=== PATIENT | female | born 1935 | race Caucasian/White ===

== ENCOUNTER 2021-03-10 16:36 | Inpatient (IN) ==
[2021-03-16] MEDS ORDERED: Bisacodyl 10 MG RECTAL SUPPOSITORY RC PRN (07:55)
[2021-03-16] MEDS ORDERED: (Diclofenac Sodium [Voltaren] 100 GM Gel) TP PRN (08:01)
[2021-03-16 09:04] LABS: Basophils # 0.1 K/mcL (0.0-0.2); Basophils % 0.6 %; Eosinophils # 0.7 K/mcL (0.0-0.6); Eosinophils % 8.2 %; Hematocrit 32.1 % (35.3-44.9); Hemoglobin 10.6 g/dL (11.5-15.4); Immature Granulocytes % 0.7 % (0-4); Lymphocytes # 1.9 K/mcL (0.6-4.6); Lymphocytes % 21.6 %; Mean Corpuscular Hemoglobin 29.7 pg (28.0-33.3); Mean Corpuscular Volume 89.9 fL (83.0-100.0); Mean Platelet Volume 10.4 fL (9.4-12.4); Monocytes # 1.4 K/mcL (0.0-1.3); Neutrophils # 4.7 K/mcL (1.6-8.9); Platelet Count 563 K/mcL (140-400); Red Blood Count 3.57 M/mcL (3.82-4.97); Red Cell Distribution Width 14.6 % (11.5-14.5); Segmented Neutrophils % 52.9 %; White Blood Count 8.9 K/mcL (4.3-11.1)
[2021-03-16] MEDS: *HR* OxyCODONE Immed Rel 5 MG TABLET PO PRN ×3 (09:04→20:52)
[2021-03-16] MEDS: Multivit/Ca/Min/Fe/FA 1 TAB TABLET PO SCH (09:05)
[2021-03-16] MEDS: Metoprolol XL (24 HR) Succ 50 MG TAB.ER.24H PO SCH ×2 (09:05→20:52)
[2021-03-16] MEDS: Furosemide 20 MG TABLET PO SCH (09:05)
[2021-03-16] MEDS: Isosorbide MONOnitrate (24 HR) 30 MG TAB.ER.24H PO SCH (09:05)
[2021-03-16] MEDS: Sennosides/Docusate Sodium TABLET PO SCH ×2 (09:05→20:52)
[2021-03-16 09:07] LABS: Activated Partial Thrombo Time 31.8 Seconds (26.0-36.0)
[2021-03-16] MEDS: TRIMETHOPRIM 100 MG PO SCH (09:09)
[2021-03-16] MEDS: *HR* SitaGLIPtin 25 MG TABLET PO SCH ×2 (09:09→16:27)
[2021-03-16] MEDS: (Cranberry Conc/C/Bacill Coag [Cranberry Tablet]) PO SCH (09:09)
[2021-03-16] MEDS: *HR* Metformin 500 MG TABLET PO SCH ×2 (09:09→16:27)
[2021-03-16 09:15] LABS: INR 1.5; Prothrombin Time 17.4 Seconds (9.4-12.1)
[2021-03-16 09:19] LABS: eGFR For African Americans > 60 (> 60); eGFR For Non-African Americans > 60 (> 60)
[2021-03-16] MEDS: *HR* Rivaroxaban 10 MG TABLET PO SCH (16:27)
[2021-03-16] MEDS ORDERED: QUEtiapine Fumarate 25 MG TABLET PO SCH (21:00)
[2021-03-17] MEDS: Sennosides/Docusate Sodium TABLET PO SCH ×2 (08:06→19:57)
[2021-03-17] MEDS: *HR* OxyCODONE Immed Rel 5 MG TABLET PO PRN ×2 (08:06→17:08)
[2021-03-17] MEDS: Metoprolol XL (24 HR) Succ 50 MG TAB.ER.24H PO SCH ×2 (08:07→19:57)
[2021-03-17] MEDS: Multivit/Ca/Min/Fe/FA 1 TAB TABLET PO SCH (08:07)
[2021-03-17] MEDS: Furosemide 20 MG TABLET PO SCH (08:07)
[2021-03-17] MEDS: *HR* Metformin 500 MG TABLET PO SCH ×2 (08:07→17:09)
[2021-03-17] MEDS: *HR* SitaGLIPtin 25 MG TABLET PO SCH ×2 (08:07→17:08)
[2021-03-17] MEDS: Isosorbide MONOnitrate (24 HR) 30 MG TAB.ER.24H PO SCH (08:08)
[2021-03-17] MEDS: (Cranberry Conc/C/Bacill Coag [Cranberry Tablet]) PO SCH (08:09)
[2021-03-17] MEDS: TRIMETHOPRIM 100 MG PO SCH (08:09)
[2021-03-17] MEDS: Acetaminophen 325 MG TABLET PO PRN (13:10)
[2021-03-17] MEDS: *HR* Rivaroxaban 10 MG TABLET PO SCH (17:08)
[2021-03-18] MEDS: *HR* OxyCODONE Immed Rel 5 MG TABLET PO PRN ×3 (05:30→20:45)
[2021-03-18 07:24] LABS: Basophils # 0.1 K/mcL (0.0-0.2); Basophils % 0.6 %; Eosinophils # 0.5 K/mcL (0.0-0.6); Eosinophils % 6.1 %; Hematocrit 34.6 % (35.3-44.9); Hemoglobin 11.1 g/dL (11.5-15.4); Immature Granulocytes % 0.7 % (0-4); Lymphocytes # 1.9 K/mcL (0.6-4.6); Lymphocytes % 21.6 %; Mean Corpuscular HGB Conc 32.1 g/dL (31.6-35.5); Mean Corpuscular Hemoglobin 29.2 pg (28.0-33.3); Mean Corpuscular Volume 91.1 fL (83.0-100.0); Mean Platelet Volume 9.8 fL (9.4-12.4); Monocytes # 1.2 K/mcL (0.0-1.3); Monocytes % 13.7 %; Platelet Count 570 K/mcL (140-400); Red Cell Distribution Width 14.6 % (11.5-14.5); Segmented Neutrophils % 57.3 %; White Blood Count 8.6 K/mcL (4.3-11.1)
[2021-03-18 07:45] LABS: BUN/Creatinine Ratio 22 (6-26); Blood Urea Nitrogen 20 mg/dL (8-23); Calcium 8.8 mg/dL (8.6-10.3); Carbon Dioxide 26 mEq/L (23-29); Chloride 103 mEq/L (98-107); Glucose 104 mg/dL (70-105); Osmolality,Calculated 289 (280-300); Potassium 4.1 mEq/L (3.5-5.1); Sodium 138 mEq/L (136-145); eGFR For African Americans > 60 (> 60); eGFR For Non-African Americans 58 (> 60)
[2021-03-18] MEDS: Multivit/Ca/Min/Fe/FA 1 TAB TABLET PO SCH (09:01)
[2021-03-18] MEDS: Metoprolol XL (24 HR) Succ 50 MG TAB.ER.24H PO SCH ×2 (09:01→20:44)
[2021-03-18] MEDS: Sennosides/Docusate Sodium TABLET PO SCH ×2 (09:01→20:44)
[2021-03-18] MEDS: Isosorbide MONOnitrate (24 HR) 30 MG TAB.ER.24H PO SCH (09:02)
[2021-03-18] MEDS: *HR* Metformin 500 MG TABLET PO SCH ×2 (09:02→17:22)
[2021-03-18] MEDS: *HR* SitaGLIPtin 25 MG TABLET PO SCH ×2 (09:02→17:22)
[2021-03-18] MEDS: Furosemide 20 MG TABLET PO SCH (09:02)
[2021-03-18] MEDS: (Cranberry Conc/C/Bacill Coag [Cranberry Tablet]) PO SCH (09:02)
[2021-03-18] MEDS: TRIMETHOPRIM 100 MG PO SCH (09:02)
[2021-03-18] MEDS: *HR* Rivaroxaban 10 MG TABLET PO SCH (17:22)
[2021-03-19] MEDS: Ondansetron ODT 4 MG TAB.RAPDIS SL PRN (06:47)
[2021-03-19] MEDS: *HR* Metformin 500 MG TABLET PO SCH ×2 (08:21→17:11)
[2021-03-19] MEDS: Multivit/Ca/Min/Fe/FA 1 TAB TABLET PO SCH (08:22)
[2021-03-19] MEDS: Metoprolol XL (24 HR) Succ 50 MG TAB.ER.24H PO SCH ×2 (08:22→19:51)
[2021-03-19] MEDS: Furosemide 20 MG TABLET PO SCH (08:22)
[2021-03-19] MEDS: Isosorbide MONOnitrate (24 HR) 30 MG TAB.ER.24H PO SCH (08:22)
[2021-03-19] MEDS: *HR* OxyCODONE Immed Rel 5 MG TABLET PO PRN ×3 (08:22→22:24)
[2021-03-19] MEDS: Sennosides/Docusate Sodium TABLET PO SCH ×2 (08:22→19:51)
[2021-03-19] MEDS: *HR* SitaGLIPtin 25 MG TABLET PO SCH ×2 (08:22→17:12)
[2021-03-19] MEDS: (Cranberry Conc/C/Bacill Coag [Cranberry Tablet]) PO SCH (08:28)
[2021-03-19] MEDS: TRIMETHOPRIM 100 MG PO SCH (08:28)
[2021-03-19] MEDS: *HR* Rivaroxaban 10 MG TABLET PO SCH (17:12)
[2021-03-19] MEDS: Acetaminophen 325 MG TABLET PO PRN (19:51)
[2021-03-20] MEDS: (Cranberry Conc/C/Bacill Coag [Cranberry Tablet]) PO SCH (09:07)
[2021-03-20] MEDS: TRIMETHOPRIM 100 MG PO SCH (09:07)
[2021-03-20] MEDS: *HR* SitaGLIPtin 25 MG TABLET PO SCH ×2 (09:09→16:12)
[2021-03-20] MEDS: Isosorbide MONOnitrate (24 HR) 30 MG TAB.ER.24H PO SCH (09:10)
[2021-03-20] MEDS: Sennosides/Docusate Sodium TABLET PO SCH ×2 (09:10→21:20)
[2021-03-20] MEDS: Multivit/Ca/Min/Fe/FA 1 TAB TABLET PO SCH (09:10)
[2021-03-20] MEDS: Furosemide 20 MG TABLET PO SCH (09:10)
[2021-03-20] MEDS: *HR* Metformin 500 MG TABLET PO SCH ×2 (09:10→16:12)
[2021-03-20] MEDS: Metoprolol XL (24 HR) Succ 50 MG TAB.ER.24H PO SCH ×2 (09:10→21:20)
[2021-03-20] MEDS: Ondansetron ODT 4 MG TAB.RAPDIS SL PRN (12:59)
[2021-03-20] MEDS: *HR* Rivaroxaban 10 MG TABLET PO SCH (16:12)
[2021-03-20] MEDS: *HR* OxyCODONE Immed Rel 5 MG TABLET PO PRN (16:18)
[2021-03-21] MEDS: Metoprolol XL (24 HR) Succ 50 MG TAB.ER.24H PO SCH ×2 (09:03→22:06)
[2021-03-21] MEDS: *HR* SitaGLIPtin 25 MG TABLET PO SCH ×2 (09:03→17:26)
[2021-03-21] MEDS: Isosorbide MONOnitrate (24 HR) 30 MG TAB.ER.24H PO SCH (09:03)
[2021-03-21] MEDS: Sennosides/Docusate Sodium TABLET PO SCH ×2 (09:03→22:06)
[2021-03-21] MEDS: Furosemide 20 MG TABLET PO SCH (09:04)
[2021-03-21] MEDS: (Cranberry Conc/C/Bacill Coag [Cranberry Tablet]) PO SCH (09:04)
[2021-03-21] MEDS: *HR* Metformin 500 MG TABLET PO SCH ×2 (09:04→17:26)
[2021-03-21] MEDS: TRIMETHOPRIM 100 MG PO SCH (09:04)
[2021-03-21] MEDS: Multivit/Ca/Min/Fe/FA 1 TAB TABLET PO SCH (09:04)
[2021-03-21] MEDS: *HR* Rivaroxaban 10 MG TABLET PO SCH (17:26)
[2021-03-22 08:45] LABS: Basophils # 0.1 K/mcL (0.0-0.2); Basophils % 0.6 %; Eosinophils # 0.4 K/mcL (0.0-0.6); Eosinophils % 3.9 %; Hematocrit 35.9 % (35.3-44.9); Hemoglobin 11.6 g/dL (11.5-15.4); Immature Granulocytes % 0.3 % (0-4); Lymphocytes % 22.7 %; Mean Corpuscular HGB Conc 32.3 g/dL (31.6-35.5); Mean Corpuscular Hemoglobin 29.2 pg (28.0-33.3); Mean Corpuscular Volume 90.4 fL (83.0-100.0); Monocytes % 10.9 %; Neutrophils # 5.5 K/mcL (1.6-8.9); Platelet Count 594 K/mcL (140-400); Red Blood Count 3.97 M/mcL (3.82-4.97); Red Cell Distribution Width 14.5 % (11.5-14.5); Segmented Neutrophils % 61.6 %
[2021-03-22 09:06] LABS: BUN/Creatinine Ratio 23 (6-26); Blood Urea Nitrogen 21 mg/dL (8-23); Carbon Dioxide 27 mEq/L (23-29); Chloride 100 mEq/L (98-107); Glucose 131 mg/dL (70-105); Osmolality,Calculated 289 (280-300); Potassium 3.8 mEq/L (3.5-5.1); Sodium 137 mEq/L (136-145); eGFR For African Americans > 60 (> 60); eGFR For Non-African Americans 58 (> 60)
[2021-03-22] MEDS: Isosorbide MONOnitrate (24 HR) 30 MG TAB.ER.24H PO SCH (10:04)
[2021-03-22] MEDS: *HR* Metformin 500 MG TABLET PO SCH ×2 (10:04→17:21)
[2021-03-22] MEDS: Furosemide 20 MG TABLET PO SCH (10:04)
[2021-03-22] MEDS: *HR* SitaGLIPtin 25 MG TABLET PO SCH ×2 (10:04→17:21)
[2021-03-22] MEDS: Sennosides/Docusate Sodium TABLET PO SCH ×2 (10:04→19:49)
[2021-03-22] MEDS: Multivit/Ca/Min/Fe/FA 1 TAB TABLET PO SCH (10:04)
[2021-03-22] MEDS: Metoprolol XL (24 HR) Succ 50 MG TAB.ER.24H PO SCH ×2 (10:05→19:49)
[2021-03-22] MEDS: (Cranberry Conc/C/Bacill Coag [Cranberry Tablet]) PO SCH (10:05)
[2021-03-22] MEDS: TRIMETHOPRIM 100 MG PO SCH (10:05)
[2021-03-22] MEDS: *HR* Rivaroxaban 10 MG TABLET PO SCH (17:21)
[2021-03-22] MEDS: *HR* OxyCODONE Immed Rel 5 MG TABLET PO PRN (17:25)
[2021-03-23] MEDS: Sennosides/Docusate Sodium TABLET PO SCH ×2 (08:20→19:41)
[2021-03-23] MEDS: *HR* SitaGLIPtin 25 MG TABLET PO SCH ×2 (08:20→16:54)
[2021-03-23] MEDS: Metoprolol XL (24 HR) Succ 50 MG TAB.ER.24H PO SCH ×2 (08:20→19:47)
[2021-03-23] MEDS: Isosorbide MONOnitrate (24 HR) 30 MG TAB.ER.24H PO SCH (08:20)
[2021-03-23] MEDS: Furosemide 20 MG TABLET PO SCH (08:20)
[2021-03-23] MEDS: Multivit/Ca/Min/Fe/FA 1 TAB TABLET PO SCH (08:21)
[2021-03-23] MEDS: *HR* Metformin 500 MG TABLET PO SCH ×2 (08:21→16:55)
[2021-03-23] MEDS: TRIMETHOPRIM 100 MG PO SCH (08:22)
[2021-03-23] MEDS: (Cranberry Conc/C/Bacill Coag [Cranberry Tablet]) PO SCH (08:22)
[2021-03-23] MEDS: *HR* OxyCODONE Immed Rel 5 MG TABLET PO PRN (16:28)
[2021-03-23] MEDS: *HR* Rivaroxaban 10 MG TABLET PO SCH (16:55)
[2021-03-24] MEDS: *HR* OxyCODONE Immed Rel 5 MG TABLET PO PRN ×2 (05:41→20:26)
[2021-03-24] MEDS: Multivit/Ca/Min/Fe/FA 1 TAB TABLET PO SCH (08:36)
[2021-03-24] MEDS: Sennosides/Docusate Sodium TABLET PO SCH ×2 (08:37→20:31)
[2021-03-24] MEDS: (Cranberry Conc/C/Bacill Coag [Cranberry Tablet]) PO SCH (08:37)
[2021-03-24] MEDS: *HR* Metformin 500 MG TABLET PO SCH ×2 (08:37→16:47)
[2021-03-24] MEDS: Furosemide 20 MG TABLET PO SCH (08:37)
[2021-03-24] MEDS: Metoprolol XL (24 HR) Succ 50 MG TAB.ER.24H PO SCH ×2 (08:37→20:27)
[2021-03-24] MEDS: *HR* SitaGLIPtin 25 MG TABLET PO SCH ×2 (08:37→16:47)
[2021-03-24] MEDS: Isosorbide MONOnitrate (24 HR) 30 MG TAB.ER.24H PO SCH (08:37)
[2021-03-24] MEDS: TRIMETHOPRIM 100 MG PO SCH (08:38)
[2021-03-24] MEDS: *HR* Rivaroxaban 10 MG TABLET PO SCH (16:48)
[2021-03-24] MEDS: Ondansetron ODT 4 MG TAB.RAPDIS SL PRN (20:27)
[2021-03-25] MEDS: *HR* OxyCODONE Immed Rel 5 MG TABLET PO PRN ×3 (06:48→23:31)
[2021-03-25] MEDS: Multivit/Ca/Min/Fe/FA 1 TAB TABLET PO SCH (08:50)
[2021-03-25] MEDS: *HR* Metformin 500 MG TABLET PO SCH ×2 (08:50→17:37)
[2021-03-25] MEDS: *HR* SitaGLIPtin 25 MG TABLET PO SCH ×2 (08:50→17:36)
[2021-03-25] MEDS: Metoprolol XL (24 HR) Succ 50 MG TAB.ER.24H PO SCH ×2 (08:51→23:31)
[2021-03-25] MEDS: Sennosides/Docusate Sodium TABLET PO SCH ×2 (08:51→23:31)
[2021-03-25] MEDS: (Cranberry Conc/C/Bacill Coag [Cranberry Tablet]) PO SCH (08:51)
[2021-03-25] MEDS: Isosorbide MONOnitrate (24 HR) 30 MG TAB.ER.24H PO SCH (08:51)
[2021-03-25] MEDS: Furosemide 20 MG TABLET PO SCH (08:51)
[2021-03-25] MEDS: TRIMETHOPRIM 100 MG PO SCH (08:56)
[2021-03-25] MEDS: *HR* Rivaroxaban 10 MG TABLET PO SCH (17:37)
[2021-03-26] MEDS: *HR* OxyCODONE Immed Rel 5 MG TABLET PO PRN ×2 (06:06→20:50)
[2021-03-26] MEDS: Furosemide 20 MG TABLET PO SCH (08:50)
[2021-03-26] MEDS: Isosorbide MONOnitrate (24 HR) 30 MG TAB.ER.24H PO SCH (08:50)
[2021-03-26] MEDS: Sennosides/Docusate Sodium TABLET PO SCH ×2 (08:50→20:49)
[2021-03-26] MEDS: *HR* SitaGLIPtin 25 MG TABLET PO SCH ×2 (08:50→17:47)
[2021-03-26] MEDS: Multivit/Ca/Min/Fe/FA 1 TAB TABLET PO SCH (08:50)
[2021-03-26] MEDS: Metoprolol XL (24 HR) Succ 50 MG TAB.ER.24H PO SCH ×2 (08:50→20:49)
[2021-03-26] MEDS: *HR* Metformin 500 MG TABLET PO SCH ×2 (08:50→17:47)
[2021-03-26] MEDS: TRIMETHOPRIM 100 MG PO SCH (08:51)
[2021-03-26] MEDS: (Cranberry Conc/C/Bacill Coag [Cranberry Tablet]) PO SCH (08:51)
[2021-03-26] MEDS: *HR* Rivaroxaban 10 MG TABLET PO SCH (17:47)
[2021-03-27 09:29] LABS: Basophils # 0.1 K/mcL (0.0-0.2); Basophils % 0.7 %; Eosinophils # 0.6 K/mcL (0.0-0.6); Eosinophils % 7.6 %; Hematocrit 37.6 % (35.3-44.9); Immature Granulocytes % 0.5 % (0-4); Lymphocytes # 2.2 K/mcL (0.6-4.6); Lymphocytes % 28.1 %; Mean Corpuscular HGB Conc 31.9 g/dL (31.6-35.5); Mean Corpuscular Hemoglobin 29.1 pg (28.0-33.3); Mean Platelet Volume 10.7 fL (9.4-12.4); Monocytes # 1.2 K/mcL (0.0-1.3); Monocytes % 15.4 %; Neutrophils # 3.7 K/mcL (1.6-8.9); Platelet Count 568 K/mcL (140-400); Red Blood Count 4.13 M/mcL (3.82-4.97); Red Cell Distribution Width 14.6 % (11.5-14.5); Segmented Neutrophils % 47.7 %; White Blood Count 7.7 K/mcL (4.3-11.1)
[2021-03-27 10:03] LABS: BUN/Creatinine Ratio 20 (6-26); Blood Urea Nitrogen 19 mg/dL (8-23); Carbon Dioxide 26 mEq/L (23-29); Chloride 102 mEq/L (98-107); Glucose 101 mg/dL (70-105); Osmolality,Calculated 290 (280-300); Potassium 3.9 mEq/L (3.5-5.1); Sodium 139 mEq/L (136-145); eGFR For African Americans > 60 (> 60); eGFR For Non-African Americans 56 (> 60)
[2021-03-27] MEDS: *HR* Metformin 500 MG TABLET PO SCH ×2 (10:04→17:17)
[2021-03-27] MEDS: Multivit/Ca/Min/Fe/FA 1 TAB TABLET PO SCH (10:04)
[2021-03-27] MEDS: Sennosides/Docusate Sodium TABLET PO SCH ×2 (10:04→20:15)
[2021-03-27] MEDS: (Cranberry Conc/C/Bacill Coag [Cranberry Tablet]) PO SCH (10:05)
[2021-03-27] MEDS: *HR* OxyCODONE Immed Rel 5 MG TABLET PO PRN (10:05)
[2021-03-27] MEDS: Metoprolol XL (24 HR) Succ 50 MG TAB.ER.24H PO SCH ×2 (10:05→20:14)
[2021-03-27] MEDS: *HR* SitaGLIPtin 25 MG TABLET PO SCH ×2 (10:05→17:17)
[2021-03-27] MEDS: Isosorbide MONOnitrate (24 HR) 30 MG TAB.ER.24H PO SCH (10:05)
[2021-03-27] MEDS: Furosemide 20 MG TABLET PO SCH (10:05)
[2021-03-27] MEDS: TRIMETHOPRIM 100 MG PO SCH (10:12)
[2021-03-27] MEDS: *HR* Rivaroxaban 10 MG TABLET PO SCH (17:17)
[2021-03-27] MEDS: Ondansetron ODT 4 MG TAB.RAPDIS SL PRN (20:28)
[2021-03-27 21:50] LABS: Bilirubin,Urine Negative (Negative); Blood,Urine Small (Negative); Clarity,Urine Clear (Clear); Color,Urine Yellow (Yellow); Glucose,Urine (UA) Normal (Normal); Ketones,Urine Negative (Negative); Leukocyte Esterase,Urine Negative (Negative); Nitrite,Urine Negative (Negative); PH,Urine 5.5 pH Units (5.0-8.0); Protein,Urine Negative (Neg-Trace); Urobilinogen,Urine Normal (Normal)
[2021-03-27 21:58] LABS: Bacteria,Urine Few per hpf (None-Few); Mucus,Urine Few per lpf (None-Few); Squamous Epithelial Cell,Urine Few per hpf (None-Few); WBC,Urine 0-3 per hpf (0-3)
[2021-03-27 21:59] LABS: Hyaline Casts,Urine Moderate per lpf (None Seen)
[2021-03-28] MEDS: *HR* OxyCODONE Immed Rel 5 MG TABLET PO PRN ×2 (00:24→09:14)
[2021-03-28] MEDS: *HR* Metformin 500 MG TABLET PO SCH ×2 (09:13→17:37)
[2021-03-28] MEDS: Multivit/Ca/Min/Fe/FA 1 TAB TABLET PO SCH (09:14)
[2021-03-28] MEDS: Isosorbide MONOnitrate (24 HR) 30 MG TAB.ER.24H PO SCH (09:14)
[2021-03-28] MEDS: Furosemide 20 MG TABLET PO SCH (09:14)
[2021-03-28] MEDS: Metoprolol XL (24 HR) Succ 50 MG TAB.ER.24H PO SCH ×2 (09:14→20:48)
[2021-03-28] MEDS: Sennosides/Docusate Sodium TABLET PO SCH ×2 (09:14→20:48)
[2021-03-28] MEDS: *HR* SitaGLIPtin 25 MG TABLET PO SCH ×2 (09:14→17:36)
[2021-03-28] MEDS: (Cranberry Conc/C/Bacill Coag [Cranberry Tablet]) PO SCH (09:15)
[2021-03-28] MEDS: TRIMETHOPRIM 100 MG PO SCH (09:15)
[2021-03-28] MEDS: *HR* Rivaroxaban 10 MG TABLET PO SCH (17:37)
[2021-03-29] MEDS: Sennosides/Docusate Sodium TABLET PO SCH ×2 (08:04→20:54)
[2021-03-29] MEDS: Metoprolol XL (24 HR) Succ 50 MG TAB.ER.24H PO SCH ×2 (08:04→20:54)
[2021-03-29] MEDS: Isosorbide MONOnitrate (24 HR) 30 MG TAB.ER.24H PO SCH (08:04)
[2021-03-29] MEDS: *HR* SitaGLIPtin 25 MG TABLET PO SCH ×2 (08:04→18:06)
[2021-03-29] MEDS: Multivit/Ca/Min/Fe/FA 1 TAB TABLET PO SCH (08:04)
[2021-03-29] MEDS: *HR* Metformin 500 MG TABLET PO SCH ×2 (08:05→18:07)
[2021-03-29] MEDS: TRIMETHOPRIM 100 MG PO SCH (08:05)
[2021-03-29] MEDS: Furosemide 20 MG TABLET PO SCH (08:06)
[2021-03-29] MEDS: (Cranberry Conc/C/Bacill Coag [Cranberry Tablet]) PO SCH (08:06)
[2021-03-29] MEDS: *HR* Rivaroxaban 10 MG TABLET PO SCH (18:06)
[2021-03-30] MEDS: TRIMETHOPRIM 100 MG PO SCH (08:21)
[2021-03-30] MEDS: *HR* SitaGLIPtin 25 MG TABLET PO SCH ×2 (08:22→17:23)
[2021-03-30] MEDS: Multivit/Ca/Min/Fe/FA 1 TAB TABLET PO SCH (08:22)
[2021-03-30] MEDS: Metoprolol XL (24 HR) Succ 50 MG TAB.ER.24H PO SCH ×2 (08:22→22:21)
[2021-03-30] MEDS: *HR* Metformin 500 MG TABLET PO SCH ×2 (08:22→17:23)
[2021-03-30] MEDS: (Cranberry Conc/C/Bacill Coag [Cranberry Tablet]) PO SCH (08:23)
[2021-03-30] MEDS: Isosorbide MONOnitrate (24 HR) 30 MG TAB.ER.24H PO SCH (08:23)
[2021-03-30] MEDS: Furosemide 20 MG TABLET PO SCH (08:23)
[2021-03-30] MEDS: Sennosides/Docusate Sodium TABLET PO SCH ×2 (08:23→22:21)
[2021-03-30] MEDS: *HR* OxyCODONE Immed Rel 5 MG TABLET PO PRN (10:24)
[2021-03-30] MEDS: *HR* Rivaroxaban 10 MG TABLET PO SCH (17:23)
[2021-03-31] MEDS: Sennosides/Docusate Sodium TABLET PO SCH ×2 (08:34→22:02)
[2021-03-31] MEDS: Metoprolol XL (24 HR) Succ 50 MG TAB.ER.24H PO SCH ×2 (08:34→22:03)
[2021-03-31] MEDS: Isosorbide MONOnitrate (24 HR) 30 MG TAB.ER.24H PO SCH (08:34)
[2021-03-31] MEDS: (Cranberry Conc/C/Bacill Coag [Cranberry Tablet]) PO SCH (08:36)
[2021-03-31] MEDS: Multivit/Ca/Min/Fe/FA 1 TAB TABLET PO SCH (08:36)
[2021-03-31] MEDS: *HR* SitaGLIPtin 25 MG TABLET PO SCH ×2 (08:36→16:58)
[2021-03-31] MEDS: Furosemide 20 MG TABLET PO SCH (08:36)
[2021-03-31] MEDS: *HR* OxyCODONE Immed Rel 5 MG TABLET PO PRN ×2 (08:36→14:36)
[2021-03-31] MEDS: *HR* Metformin 500 MG TABLET PO SCH ×2 (08:36→16:58)
[2021-03-31] MEDS: TRIMETHOPRIM 100 MG PO SCH (08:39)
[2021-03-31] MEDS: Acetaminophen 325 MG TABLET PO PRN (11:54)
[2021-03-31] MEDS: *HR* Rivaroxaban 10 MG TABLET PO SCH (16:58)
[2021-04-01] MEDS: Metoprolol XL (24 HR) Succ 50 MG TAB.ER.24H PO SCH ×2 (09:50→20:37)
[2021-04-01] MEDS: Furosemide 20 MG TABLET PO SCH (09:50)
[2021-04-01] MEDS: *HR* Metformin 500 MG TABLET PO SCH ×2 (09:50→16:56)
[2021-04-01] MEDS: *HR* SitaGLIPtin 25 MG TABLET PO SCH ×2 (09:50→16:56)
[2021-04-01] MEDS: Isosorbide MONOnitrate (24 HR) 30 MG TAB.ER.24H PO SCH (09:50)
[2021-04-01] MEDS: Sennosides/Docusate Sodium TABLET PO SCH ×2 (09:50→20:35)
[2021-04-01] MEDS: Multivit/Ca/Min/Fe/FA 1 TAB TABLET PO SCH (09:51)
[2021-04-01] MEDS: TRIMETHOPRIM 100 MG PO SCH (09:52)
[2021-04-01] MEDS: (Cranberry Conc/C/Bacill Coag [Cranberry Tablet]) PO SCH (09:53)
[2021-04-01] MEDS: *HR* OxyCODONE Immed Rel 5 MG TABLET PO PRN ×2 (10:16→16:56)
[2021-04-01] MEDS: *HR* Rivaroxaban 10 MG TABLET PO SCH (16:56)
[2021-04-02] MEDS: Multivit/Ca/Min/Fe/FA 1 TAB TABLET PO SCH (09:43)
[2021-04-02] MEDS: *HR* OxyCODONE Immed Rel 5 MG TABLET PO PRN ×2 (09:43→17:34)
[2021-04-02] MEDS: Isosorbide MONOnitrate (24 HR) 30 MG TAB.ER.24H PO SCH (09:43)
[2021-04-02] MEDS: Sennosides/Docusate Sodium TABLET PO SCH ×2 (09:43→20:45)
[2021-04-02] MEDS: Furosemide 20 MG TABLET PO SCH (09:44)
[2021-04-02] MEDS: *HR* Metformin 500 MG TABLET PO SCH ×2 (09:45→17:35)
[2021-04-02] MEDS: *HR* SitaGLIPtin 25 MG TABLET PO SCH ×2 (09:45→17:35)
[2021-04-02] MEDS: Metoprolol XL (24 HR) Succ 50 MG TAB.ER.24H PO SCH ×2 (09:46→20:45)
[2021-04-02] MEDS: TRIMETHOPRIM 100 MG PO SCH (10:32)
[2021-04-02] MEDS: (Cranberry Conc/C/Bacill Coag [Cranberry Tablet]) PO SCH (10:35)
[2021-04-02] MEDS: Ondansetron ODT 4 MG TAB.RAPDIS SL PRN (10:52)
[2021-04-02 11:40] LABS: Basophils % 0.4 %; Eosinophils # 0.6 K/mcL (0.0-0.6); Hematocrit 36.3 % (35.3-44.9); Hemoglobin 11.8 g/dL (11.5-15.4); Immature Granulocytes % 0.2 % (0-4); Lymphocytes # 2.2 K/mcL (0.6-4.6); Lymphocytes % 26.3 %; Mean Corpuscular HGB Conc 32.5 g/dL (31.6-35.5); Mean Corpuscular Hemoglobin 29.4 pg (28.0-33.3); Mean Corpuscular Volume 90.5 fL (83.0-100.0); Mean Platelet Volume 10.3 fL (9.4-12.4); Neutrophils # 4.6 K/mcL (1.6-8.9); Platelet Count 470 K/mcL (140-400); Red Blood Count 4.01 M/mcL (3.82-4.97); Segmented Neutrophils % 54.1 %; White Blood Count 8.5 K/mcL (4.3-11.1)
[2021-04-02 11:48] LABS: BUN/Creatinine Ratio 19 (6-26); Blood Urea Nitrogen 18 mg/dL (8-23); Calcium 8.9 mg/dL (8.6-10.3); Carbon Dioxide 23 mEq/L (23-29); Chloride 105 mEq/L (98-107); Glucose 122 mg/dL (70-105); Osmolality,Calculated 287 (280-300); Potassium 4.1 mEq/L (3.5-5.1); Sodium 137 mEq/L (136-145); eGFR For African Americans > 60 (> 60); eGFR For Non-African Americans 54 (> 60)
[2021-04-02] MEDS: *HR* Rivaroxaban 10 MG TABLET PO SCH (17:36)
[2021-04-03] MEDS: *HR* SitaGLIPtin 25 MG TABLET PO SCH ×2 (09:32→17:34)
[2021-04-03] MEDS: Metoprolol XL (24 HR) Succ 50 MG TAB.ER.24H PO SCH ×2 (09:32→20:16)
[2021-04-03] MEDS: Multivit/Ca/Min/Fe/FA 1 TAB TABLET PO SCH (09:32)
[2021-04-03] MEDS: Furosemide 20 MG TABLET PO SCH (09:32)
[2021-04-03] MEDS: *HR* Metformin 500 MG TABLET PO SCH ×2 (09:33→17:34)
[2021-04-03] MEDS: TRIMETHOPRIM 100 MG PO SCH (09:33)
[2021-04-03] MEDS: Sennosides/Docusate Sodium TABLET PO SCH ×2 (09:33→20:16)
[2021-04-03] MEDS: Isosorbide MONOnitrate (24 HR) 30 MG TAB.ER.24H PO SCH (09:33)
[2021-04-03] MEDS: (Cranberry Conc/C/Bacill Coag [Cranberry Tablet]) PO SCH (09:36)
[2021-04-03] MEDS: *HR* Rivaroxaban 10 MG TABLET PO SCH (17:33)
[2021-04-04] MEDS: Furosemide 20 MG TABLET PO SCH (08:25)
[2021-04-04] MEDS: Isosorbide MONOnitrate (24 HR) 30 MG TAB.ER.24H PO SCH (08:25)
[2021-04-04] MEDS: Multivit/Ca/Min/Fe/FA 1 TAB TABLET PO SCH (08:25)
[2021-04-04] MEDS: *HR* Metformin 500 MG TABLET PO SCH ×2 (08:25→17:13)
[2021-04-04] MEDS: Sennosides/Docusate Sodium TABLET PO SCH ×2 (08:25→19:50)
[2021-04-04] MEDS: (Cranberry Conc/C/Bacill Coag [Cranberry Tablet]) PO SCH (08:25)
[2021-04-04] MEDS: *HR* SitaGLIPtin 25 MG TABLET PO SCH ×2 (08:25→17:13)
[2021-04-04] MEDS: Metoprolol XL (24 HR) Succ 50 MG TAB.ER.24H PO SCH ×2 (08:25→19:51)
[2021-04-04] MEDS: TRIMETHOPRIM 100 MG PO SCH (08:26)
[2021-04-04] MEDS: Acetaminophen 325 MG TABLET PO PRN (12:08)
[2021-04-04] MEDS: *HR* OxyCODONE Immed Rel 5 MG TABLET PO PRN (12:11)
[2021-04-04] MEDS: *HR* Rivaroxaban 10 MG TABLET PO SCH (17:13)
[2021-04-05] MEDS: Sennosides/Docusate Sodium TABLET PO SCH ×2 (10:30→19:47)
[2021-04-05] MEDS: Furosemide 20 MG TABLET PO SCH (10:31)
[2021-04-05] MEDS: *HR* Metformin 500 MG TABLET PO SCH ×2 (10:31→18:19)
[2021-04-05] MEDS: Isosorbide MONOnitrate (24 HR) 30 MG TAB.ER.24H PO SCH (10:31)
[2021-04-05] MEDS: *HR* SitaGLIPtin 25 MG TABLET PO SCH ×2 (10:31→18:19)
[2021-04-05] MEDS: Metoprolol XL (24 HR) Succ 50 MG TAB.ER.24H PO SCH ×2 (10:31→19:47)
[2021-04-05] MEDS: Multivit/Ca/Min/Fe/FA 1 TAB TABLET PO SCH (10:31)
[2021-04-05] MEDS: (Cranberry Conc/C/Bacill Coag [Cranberry Tablet]) PO SCH (10:32)
[2021-04-05] MEDS: TRIMETHOPRIM 100 MG PO SCH (10:32)
[2021-04-05] MEDS: *HR* Rivaroxaban 10 MG TABLET PO SCH (18:20)
[2021-04-06] MEDS: *HR* Metformin 500 MG TABLET PO SCH ×2 (10:27→18:15)
[2021-04-06] MEDS: TRIMETHOPRIM 100 MG PO SCH (10:27)
[2021-04-06] MEDS: Multivit/Ca/Min/Fe/FA 1 TAB TABLET PO SCH (10:27)
[2021-04-06] MEDS: Sennosides/Docusate Sodium TABLET PO SCH ×2 (10:27→20:10)
[2021-04-06] MEDS: *HR* SitaGLIPtin 25 MG TABLET PO SCH ×2 (10:27→18:15)
[2021-04-06] MEDS: (Cranberry Conc/C/Bacill Coag [Cranberry Tablet]) PO SCH (10:28)
[2021-04-06] MEDS: Metoprolol XL (24 HR) Succ 50 MG TAB.ER.24H PO SCH ×2 (10:28→20:11)
[2021-04-06] MEDS: Isosorbide MONOnitrate (24 HR) 30 MG TAB.ER.24H PO SCH (10:28)
[2021-04-06] MEDS: Furosemide 20 MG TABLET PO SCH (10:28)
[2021-04-06] MEDS: *HR* Rivaroxaban 10 MG TABLET PO SCH (18:15)
[2021-04-07] MEDS: TRIMETHOPRIM 100 MG PO SCH (08:20)
[2021-04-07] MEDS: Metoprolol XL (24 HR) Succ 50 MG TAB.ER.24H PO SCH ×2 (08:20→20:56)
[2021-04-07] MEDS: Multivit/Ca/Min/Fe/FA 1 TAB TABLET PO SCH (08:20)
[2021-04-07] MEDS: Furosemide 20 MG TABLET PO SCH (08:21)
[2021-04-07] MEDS: *HR* Metformin 500 MG TABLET PO SCH ×2 (08:21→17:02)
[2021-04-07] MEDS: *HR* SitaGLIPtin 25 MG TABLET PO SCH ×2 (08:21→17:03)
[2021-04-07] MEDS: Sennosides/Docusate Sodium TABLET PO SCH ×2 (08:21→21:01)
[2021-04-07] MEDS: Isosorbide MONOnitrate (24 HR) 30 MG TAB.ER.24H PO SCH (08:22)
[2021-04-07] MEDS: (Cranberry Conc/C/Bacill Coag [Cranberry Tablet]) PO SCH (08:22)
[2021-04-07] MEDS: *HR* Rivaroxaban 10 MG TABLET PO SCH (17:03)
[2021-04-08 07:09] VITALS: BP 127/65; PULSE 74; RESP 18; TEMP 98.6; O2SAT 100
[2021-04-08] MEDS: *HR* SitaGLIPtin 25 MG TABLET PO SCH (08:42)
[2021-04-08] MEDS: Multivit/Ca/Min/Fe/FA 1 TAB TABLET PO SCH (08:42)
[2021-04-08] MEDS: *HR* Metformin 500 MG TABLET PO SCH (08:42)
[2021-04-08] MEDS: Metoprolol XL (24 HR) Succ 50 MG TAB.ER.24H PO SCH (08:42)
[2021-04-08] MEDS: Furosemide 20 MG TABLET PO SCH (08:42)
[2021-04-08] MEDS: Sennosides/Docusate Sodium TABLET PO SCH (08:42)
[2021-04-08] MEDS: Isosorbide MONOnitrate (24 HR) 30 MG TAB.ER.24H PO SCH (08:42)
[2021-04-08] MEDS: (Cranberry Conc/C/Bacill Coag [Cranberry Tablet]) PO SCH (08:47)
[2021-04-08] MEDS: TRIMETHOPRIM 100 MG PO SCH (08:47)
== END 2021-04-08 11:00 | disposition hospice, home (50) | DRG 560 ==
LOC: INPPIK 03-16 05:12
PROVIDERS: ADMIT Family Medicine; ATTEND Family Medicine